=== PATIENT | female | born 1935 | race African-American/Black ===

== ENCOUNTER 2017-09-08 07:50 | Observation (INO) | payer MEDICARE, OTHER ==
[2017-09-08] VITALS (10 sets, daily range): BP systolic 126–189; BP diastolic 63–88; PULSE 65–82; RESP 15–18; TEMP 97.8–98.6; O2SAT 98–100
[~2017-09-08] VITALS: Ht 167.6 cm; Wt 80.0 kg
[~2017-09-08 07:50] MED LIST: ASPI81TA82 PO; FISH500C PO; GLUCTAB PO; NEXI20CA PO; TYLE3 PO
[2017-09-08] MEDS ORDERED: METF500T PO (07:59)
[2017-09-08] MEDS ORDERED: BENA10TA PO (08:08)
[2017-09-08] MEDS ORDERED: SODIUM CHLOR 0.9% 1000 ML INJ 1,000 ML IV ONE (08:33)
[2017-09-08] MEDS ORDERED: MECLIZINE HCL 25 MG TAB PO ONE (08:45)
[2017-09-08] MEDS ORDERED: SODIUM CHLORIDE 0.9% FLUSH 10 ML FLUSH IVF PRN (08:45)
[2017-09-08] MEDS ORDERED: ONDANSETRON HCL 4 MG/2 ML VIAL IVP ONE (08:45)
--- NOTE | 2017-09-08 08:47 | PD ---
HPI Chief Complaint: Dizziness Time Seen by Provider: 08:20 Travel History International Travel<30 days: No Contact w/Intl Traveler<30days: No Traveled to known affect area: No History of Present Illness HPI The patient is a 82-year-old after [place] female who presents emergency department for dizziness. The patient states her dizziness started yesterday. The dizziness is intermittent, can last minutes to hours, is worse with standing upright and activity, alleviated at rest. She denies any dizziness with turning her head to the left or right. She describes her dizziness as feeling off balance, denies any room spinning or for dizziness symptoms. She denies any nausea, vomiting, palpitations, chest pain, shortness of breath, or focal deficits. The patient does have a history of similar symptoms according to family member, states that she occasionally will become dizzy when she is over exerted. The patient is asymptomatic upon arrival, was noted her blood pressure was elevated. The patient is followed by her primary physician, Dr. Gordon, and her senior data modeler, Dr. Mcclure. PFSH Past Medical History Arthritis: Yes Cancer: No Cardiovascular Problems: Yes Chemotherapy: No Diabetes: Yes (PT REPORT DOES NOT TAKE MEDS) Patient Takes Glucophage: No Diminished Hearing: No Gastrointestinal Disorders: Yes GERD: Yes Genitourinary: No Musculoskeletal: Yes Neurologic: Yes Reproductive: No Respiratory: No Migraines: Yes Radiation Therapy: No Tetanus Vaccination: > 5 Years Influenza Vaccination: Yes ?: Not Menopausal: Yes : 1 Para: 1 Past Surgical History Gynecologic Surgery: Yes Hysterectomy: Yes Social History Alcohol Use: Yes (OCCL) Tobacco Use: No (QUIT 25 YRS AGO) Substance Use: No Allergies-Medications (Allergen,Severity, Reaction): Coded Allergies: No Known Allergies (Verified Adverse Reaction, Unknown, 09/08/17) Reported Meds & Prescriptions Reported Meds & Active Scripts Active Reported Benazepril (Benazepril HCl) 10 Mg Tab 10 Mg PO DAILY Review of Systems Except as stated in HPI: all other systems reviewed are Neg General / Constitutional: No: Fever Eyes: No: Blurred Vision HENT: Positive: Lightheadedness, No: Headaches, Vertigo Cardiovascular: No: Chest Pain or Discomfort, Palpitations, Tachycardia, Diaphoresis Respiratory: No: Shortness of Breath Gastrointestinal: No: Nausea, Vomiting Musculoskeletal: Positive: Weakness Neurologic: Positive: Dizziness, No: Focal Abnormalities, Headache, Change in Mentation, Paresthesia, Sensory Disturbance Physical Exam Narrative GENERAL: Awake, alert, pleasant 82-year-old female who appears her stated age and is in no acute respiratory distress. SKIN: Focused skin assessment warm/dry. HEAD: Atraumatic. Normocephalic. EYES: Pupils equal and round. 2 mm bilateral. EOMs are intact. Patient was able to see fingers at a distance of 2 feet without difficulty. ENT: No nasal bleeding or discharge. Mucous membranes pink and moist. NECK: Trachea midline. No JVD. CARDIOVASCULAR: Regular rate and rhythm. No murmur appreciated. RESPIRATORY: No accessory muscle use. Clear to auscultation. Breath sounds equal bilaterally. GASTROINTESTINAL: Abdomen soft, non-tender, nondistended. No rebound tenderness. MUSCULOSKELETAL: No obvious deformities. No clubbing. No cyanosis. No edema. NEUROLOGICAL: Awake and alert. No obvious cranial nerve deficits. Motor grossly within normal limits. Normal speech. Nonfocal. Oriented 3. Follows commands without difficulty. PSYCHIATRIC: Appropriate mood and affect; insight and judgment normal. Data Data Last Documented VS Vital Signs Date Time Temp Pulse Resp B/P (MAP) Pulse Ox O2 Delivery O2 Flow Rate FiO2 09/08/17 11:15 97.9 75 16 146/73 (97) 99 Room Air Orders Orders Electrocardiogram (09/08/17 08:33) Complete Blood Count With Diff (09/08/17 08:33) Comprehensive Metabolic Panel (09/08/17 08:33) Magnesium (Mg) (09/08/17 08:33) Ckmb (Isoenzyme) Profile (09/08/17 08:33) Troponin I (09/08/17 08:33) Urinalysis - C+S If Indicated (09/08/17 08:33) Chest, Single Ap (09/08/17 08:33) Ct Brain W/O Iv Contrast(Rout) (09/08/17 08:33) Ecg Monitoring (09/08/17 08:33) Iv Access Insert/Monitor (09/08/17 08:33) Oximetry (09/08/17 08:33) Meclizine (Antivert) (09/08/17 08:45) Ondansetron Inj (Zofran Inj) (09/08/17 08:45) Sodium Chloride 0.9% Flush (Ns Flush) (09/08/17 08:45) Sodium Chlor 0.9% 1000 Ml Inj (Ns 1000 M (09/08/17 08:33) Orthostatic Vital Signs (09/08/17 08:33) CKMB (09/08/17 08:20) CKMB% (09/08/17 08:20) Labetalol Inj (Trandate Inj) (09/08/17 09:30) Mri Brain W/O Contrast (09/08/17 ) Admit Order (Ed Use Only) (09/08/17 13:04) Labs Laboratory Tests Test 09/08/17 08:20 09/08/17 08:40 White Blood Count 4.6 TH/MM3 Red Blood Count 5.15 MIL/MM3 Hemoglobin 12.0 GM/DL Hematocrit 38.3 % Mean Corpuscular Volume 74.3 FL Mean Corpuscular Hemoglobin 23.2 PG Mean Corpuscular Hemoglobin Concent 31.3 % Red Cell Distribution Width 14.8 % Platelet Count 142 TH/MM3 Mean Platelet Volume 10.6 FL Neutrophils (%) (Auto) 27.5 % Lymphocytes (%) (Auto) 58.0 % Monocytes (%) (Auto) 10.7 % Eosinophils (%) (Auto) 3.4 % Basophils (%) (Auto) 0.4 % Neutrophils # (Auto) 1.3 TH/MM3 Lymphocytes # (Auto) 2.7 TH/MM3 Monocytes # (Auto) 0.5 TH/MM3 Eosinophils # (Auto) 0.2 TH/MM3 Basophils # (Auto) 0.0 TH/MM3 CBC Comment DIFF FINAL Differential Comment Blood Urea Nitrogen 15 MG/DL Creatinine 0.80 MG/DL Random Glucose 118 MG/DL Total Protein 7.5 GM/DL Albumin 3.5 GM/DL Calcium Level 9.2 MG/DL Magnesium Level 2.1 MG/DL Alkaline Phosphatase 65 U/L Aspartate Amino Transf (AST/SGOT) 25 U/L Alanine Aminotransferase (ALT/SGPT) 25 U/L Total Bilirubin 0.3 MG/DL Sodium Level 142 MEQ/L Potassium Level 3.3 MEQ/L Chloride Level 108 MEQ/L Carbon Dioxide Level 26.5 MEQ/L Anion Gap 8 MEQ/L Estimat Glomerular Filtration Rate 83 ML/MIN Total Creatine Kinase 522 U/L Creatine Kinase MB 5.5 NG/ML Creatine Kinase MB % 1.1 % Troponin I LESS THAN 0.02 NG/ML Urine Color YELLOW Urine Turbidity CLEAR Urine pH 5.5 Urine Specific [place] 1.013 Urine Protein NEG mg/dL Urine Glucose (UA) NEG mg/dL Urine Ketones NEG mg/dL Urine Occult Blood NEG Urine Nitrite NEG Urine Bilirubin NEG Urine Urobilinogen LESS THAN 2.0 MG/DL Urine Leukocyte Esterase LARGE Urine RBC 1 /hpf Urine WBC 5 /hpf Urine Squamous Epithelial Cells 2 /hpf Urine Bacteria RARE /hpf Urine Mucus FEW /lpf Microscopic Urinalysis Comment CULT NOT INDICATED MDM Medical Decision Making Medical Screen Exam Complete: Yes Emergency Medical Condition: Yes Medical Record Reviewed: Yes Interpretation(s) EKG reveals normal sinus rhythm with a rate of 76. Q wave noted in lead 3 and aVF. Tall R-wave in V2. Last Impressions Head CT 09/08/17832 Signed Impressions: Service Date/Time: September 08:46 - CONCLUSION: 1. No acute intracranial abnormality. Marquis Khan MD Chest X-Ray 09/08/17832 Signed Impressions: Service Date/Time: September 08:37 - CONCLUSION: 1. No acute cardiopulmonary findings identified. Marquis Khan MD Brain MRI 09/08/17 0000 Signed Impressions: Service Date/Time: September 11:39 - CONCLUSION: 1. No acute findings in the brain. 2. Mild asymmetry to the left temporal artery and subcutaneous soft tissues adjacent to the left mandible with some central T2 prolongation. This is nonspecific in appearance, but raises the possibility of temporal arteritis. Kobi Bui MD Laboratory Tests Test 09/08/17 08:20 09/08/17 08:40 White Blood Count 4.6 TH/MM3 Red Blood Count 5.15 MIL/MM3 Hemoglobin 12.0 GM/DL Hematocrit 38.3 % Mean Corpuscular Volume 74.3 FL Mean Corpuscular Hemoglobin 23.2 PG Mean Corpuscular Hemoglobin Concent 31.3 % Red Cell Distribution Width 14.8 % Platelet Count 142 TH/MM3 Mean Platelet Volume 10.6 FL Neutrophils (%) (Auto) 27.5 % Lymphocytes (%) (Auto) 58.0 % Monocytes (%) (Auto) 10.7 % Eosinophils (%) (Auto) 3.4 % Basophils (%) (Auto) 0.4 % Neutrophils # (Auto) 1.3 TH/MM3 Lymphocytes # (Auto) 2.7 TH/MM3 Monocytes # (Auto) 0.5 TH/MM3 Eosinophils # (Auto) 0.2 TH/MM3 Basophils # (Auto) 0.0 TH/MM3 CBC Comment DIFF FINAL Differential Comment Blood Urea Nitrogen 15 MG/DL Creatinine 0.80 MG/DL Random Glucose 118 MG/DL Total Protein 7.5 GM/DL Albumin 3.5 GM/DL Calcium Level 9.2 MG/DL Magnesium Level 2.1 MG/DL Alkaline Phosphatase 65 U/L Aspartate Amino Transf (AST/SGOT) 25 U/L Alanine Aminotransferase (ALT/SGPT) 25 U/L Total Bilirubin 0.3 MG/DL Sodium Level 142 MEQ/L Potassium Level 3.3 MEQ/L Chloride Level 108 MEQ/L Carbon Dioxide Level 26.5 MEQ/L Anion Gap 8 MEQ/L Estimat Glomerular Filtration Rate 83 ML/MIN Total Creatine Kinase 522 U/L Creatine Kinase MB 5.5 NG/ML Creatine Kinase MB % 1.1 % Troponin I LESS THAN 0.02 NG/ML Urine Color YELLOW Urine Turbidity CLEAR Urine pH 5.5 Urine Specific [place] 1.013 Urine Protein NEG mg/dL Urine Glucose (UA) NEG mg/dL Urine Ketones NEG mg/dL Urine Occult Blood NEG Urine Nitrite NEG Urine Bilirubin NEG Urine Urobilinogen LESS THAN 2.0 MG/DL Urine Leukocyte Esterase LARGE Urine RBC 1 /hpf Urine WBC 5 /hpf Urine Squamous Epithelial Cells 2 /hpf Urine Bacteria RARE /hpf Urine Mucus FEW /lpf Microscopic Urinalysis Comment CULT NOT INDICATED Differential Diagnosis Differential diagnosis includes dizziness, UTI, intracranial hemorrhage, hypertensive urgency, hypertensive emergency, cerebellar CVA, hyponatremia, vertigo, dehydration, orthostatic hypotension. Narrative Course IV was established, labs are drawn and sent, and the patient was placed on cardiac telemetry monitoring and continuous pulse oximetry monitoring. EKG was ordered and interpreted. CT of the brain was obtained. Chest x-ray was obtained. Orthostatic vital signs were obtained. The patient was administered meclizine, Zofran, and IV fluids. CT the brain reveals no acute cranial hemorrhage. Orthostatic vital signs were unremarkable. EKG revealed normal sinus rhythm, telemetry monitoring did not reveal any evidence of arrhythmia. Patient's blood pressure was elevated, she was administered labetalol 10 mg intravenously, systolic came to the 140s and diastolic to the 80s. The patient continued to have symptoms, therefore, MRI the brain was obtained to rule out cerebellar infarct, it was negative for infarct, nonspecific changes to the temporal area. However, the patient does not have a headache or fever. The patient was attempted to sit upright and then ambulate, however, she was unable to transition from the stretcher to the chair secondary to dizziness. Therefore , [facility] hour observation secondary to dizziness and inability to ambulate, as the patient's primary physician is Dr. Gordon. I discussed patient with Dr. Mckeon who agrees with 23 hour observation. Physician Communication Physician Communication I discussed the patient Dr. Mckeon who agrees with 23 hour observation. Diagnosis Primary Impression: Dizziness Admitting Information Admitting Physician Requests: Observation Condition: Stable Carlos Nowak MD Sep 08, 2017 08:47
--- NOTE | 2017-09-08 09:01 | RADRPT ---
EXAM DATE/TIME: 09/08/2017 08:46 [facility] COMPARISON: CT BRAIN W/O CONTRAST, November 13, 2012, 13:25. INDICATIONS : Dizziness. RADIATION DOSE: 56.35 CTDIvol (mGy) MEDICAL HISTORY : Cardiovascular disease. Diabetes mellitus type 2. SURGICAL HISTORY : Hysterectomy. ENCOUNTER: Initial ACUITY: 3 days PAIN SCALE: 0/10 LOCATION: Bilateral cranial TECHNIQUE: Multiple contiguous axial images were obtained of the head. Using automated exposure control and adj ustment of the mA and/or kV according to patient size, radiation dose was kept as low as reasonably a chievable to obtain optimal diagnostic quality images. DICOM format image data is available electro nically for review and comparison. FINDINGS: CEREBRUM: The ventricles are normal for age. No evidence of midline shift, mass lesion, hemorrhage or acute in farction. No extra-axial fluid collections are seen. POSTERIOR FOSSA: The cerebellum and brainstem are intact. The 4th ventricle is midline. The cerebellopontine angle i s unremarkable. EXTRACRANIAL: The visualized portion of the orbits is intact. SKULL: The calvaria is intact. No evidence of skull fracture. CONCLUSION: 1. No acute intracranial abnormality. Marquis Khan MD on September 08, 2017 at 8:58 Board Certified Radiologist. This report was verified electronically.
--- NOTE | 2017-09-08 09:08 | RADRPT ---
EXAM DATE/TIME: 09/08/2017 08:37 [facility] COMPARISON: CHEST SINGLE AP, June 17, 2012, 16:14. INDICATIONS : Palpitations, vertigo and weakness today MEDICAL HISTORY : None. SURGICAL HISTORY : None. ENCOUNTER: Initial ACUITY: 1 day PAIN SCORE: Non-responsive. LOCATION: Bilateral chest FINDINGS: The heart is mildly enlarged. The lungs demonstrate chronic interstitial changes but are otherwise cl ear. The osseous structures are grossly intact. No pneumothorax is seen. The exam is stable compared to previous dated 06/17/12. CONCLUSION: 1. No acute cardiopulmonary findings identified. Marquis Khan MD on September 08, 2017 at 9:05 Board Certified Radiologist. This report was verified electronically.
[2017-09-08 09:15] LABS: ALBUMIN 3.5 GM/DL (3.4-5.0); ALT (GPT) 25 U/L (10-53); AST (GOT) 25 U/L (15-37); BICARBONATE 26.5 MEQ/L (21.0-32.0); BLOOD UREA NITROGEN 15 MG/DL (7-18); CALCIUM 9.2 MG/DL (8.5-10.1); CHLORIDE 108 MEQ/L (98-107); GLOMERULAR FILTRATION RATE 83 ML/MIN (>89); GLUCOSE,RANDOM 118 MG/DL (74-106); MAGNESIUM 2.1 MG/DL (1.5-2.5); SODIUM (NA) 142 MEQ/L (136-145)
[2017-09-08 09:18] LABS: AUTOMATED NEUTROPHIL # 1.3 TH/MM3 (1.8-7.7); BASOPHIL % 0.4 % (0.0-2.0); EOSINOPHIL # 0.2 TH/MM3 (0-0.4); EOSINOPHIL % 3.4 % (0.0-4.0); HEMATOCRIT 38.3 % (35.0-46.0); LYMPHOCYTE # 2.7 TH/MM3 (1.0-4.8); MEAN CELL VOLUME 74.3 FL (80.0-100.0); MEAN CORPUSCULAR HEMOGLOBIN 23.2 PG (27.0-34.0); MEAN CORPUSCULAR HGB CONC 31.3 % (32.0-36.0); MEAN PLATELET VOLUME 10.6 FL (7.0-11.0); MONO % 10.7 % (0.0-8.0); MONOCYTE # 0.5 TH/MM3 (0-0.9); NEUT % 27.5 % (16.0-70.0); PLATELET COUNT 142 TH/MM3 (150-450); RED BLOOD COUNT 5.15 MIL/MM3 (4.00-5.30); RED CELL DISTRIBUTION WIDTH 14.8 % (11.6-17.2); WHITE BLOOD COUNT 4.6 TH/MM3 (4.0-11.0)
[2017-09-08 09:19] LABS: ALKALINE PHOSPHATASE 65 U/L (45-117); TOTAL BILIRUBIN ADULT 0.3 MG/DL (0.2-1.0); TOTAL PROTEIN 7.5 GM/DL (6.4-8.2); TROPONIN I LESS THAN 0.02 NG/ML (0.02-0.05)
[2017-09-08] MEDS ORDERED: LABETALOL HCL 100 MG/20 ML VIAL IV PUSH ONE (09:30)
[2017-09-08 09:40] LABS: BACTERIA, URINE RARE /hpf; BILIRUBIN, URINE NEG (NEG); BLOOD, URINE NEG (NEG); GLUCOSE,URINE NEG (NEG); KETONE, URINE NEG (NEG); MUCUS URINE FEW /lpf (OCC); NITRITE,URINE NEG (NEG); PH, URINE 5.5 (5.0-8.5); SQUAMOUS EPITHELIAL CELL URINE 2 /hpf (0-5); URINE COLOR YELLOW (YELLW/STRAW); URINE LEUKOCYTE ESTERASE LARGE (NEG)
--- NOTE | 2017-09-08 12:30 | RADRPT ---
EXAM DATE/TIME: 09/08/2017 11:39 [facility] COMPARISON: CT BRAIN W/O CONTRAST, September 08, 2017, 8:46. INDICATIONS : CVA. Dizziness for three days. MEDICAL HISTORY : Diabetes mellitus type 2. Hypertension. SURGICAL HISTORY : Hysterectomy. Right knee surgery. ENCOUNTER: Initial ACUITY: 3 day PAIN SCORE: 0/10 LOCATION: Head. TECHNIQUE: Multiplanar, multisequence MRI of the brain was performed without contrast. FINDINGS: CEREBRUM: The ventricles are normal for age. No evidence of midline shift, mass lesion, hemorrhage or acute in farction. No extraaxial fluid collections are seen. The pituitary gland and suprasellar cistern are normal in configuration. WHITE MATTER: No significant signal abnormalities are seen in the white matter. POSTERIOR FOSSA: The cerebellum and brainstem are intact. The 4th ventricle is midline. The cerebellopontine angle is unremarkable. The cerebellar tonsils are normal in position. Tortuous basilar artery. DIFFUSION IMAGING: No focal areas of restricted diffusion are seen. No evidence of acute infarction. EXTRACRANIAL: The visualized portions of the orbits and paranasal sinuses are unremarkable. CONCLUSION: 1. No acute findings in the brain. 2. Mild asymmetry to the left temporal artery and subcutaneous soft tissues adjacent to the left steven ible with some central T2 prolongation. This is nonspecific in appearance, but raises the possibility of temporal arteritis. Kobi Bui MD on September 08, 2017 at 12:24 Board Certified Radiologist. This report was verified electronically.
[2017-09-08] MEDS: SODIUM CHLOR 0.9% 1000 ML INJ 1,000 ML IV SCH (13:04)
[2017-09-08] MEDS ORDERED: ONDANSETRON HCL 4 MG/2 ML VIAL IVP PRN (13:15)
[2017-09-08] MEDS ORDERED: SODIUM CHLORIDE 0.9% FLUSH 10 ML FLUSH IV FLUSH PRN (13:15)
[2017-09-08] MEDS ORDERED: MAGNESIUM HYDROXIDE SUSP 30 ML CUP PO PRN (13:15)
[2017-09-08] MEDS ORDERED: NALOXONE HCL 0.4 MG/ML AMP IV PUSH PRN (13:15)
[2017-09-08] MEDS ORDERED: BISACODYL 10 MG SUPP RECTAL PRN (13:15)
[2017-09-08] MEDS ORDERED: SENNOSIDES 8.6 MG TAB PO PRN (13:15)
[2017-09-08] MEDS ORDERED: LACTULOSE SYRUP 20 GM/30 ML CUP PO PRN (13:15)
[2017-09-08] MEDS ORDERED: DIAZEPAM 2 MG TAB PO PRN (13:30)
[2017-09-08] MEDS ORDERED: MECLIZINE HCL 25 MG TAB PO PRN (13:30)
[2017-09-08] MEDS ORDERED: ENALAPRILAT 2.5 MG/2 ML VIAL IV PUSH PRN (13:30)
[2017-09-08] MEDS ORDERED: DIAZEPAM 5 MG TAB PO ONE (13:30)
--- NOTE | 2017-09-08 13:35 | HHI.HP ---
[facility] Service [facility] Primary Care Physician Mary Gordon M.D. Admission Diagnosis dizziness, inability to ambulate Diagnoses: Chief Complaint: dizziness Travel History International Travel<30 Days: No Contact w/Intl Traveler <30 Da: No Traveled to Known Affected Are: No History of Present Illness This is an 82-year-old female past medical history hypertension complaining of dizziness. Patient stated that dizziness started yesterday. Dizziness described as room spinning. Only occurs when she gets up. She stated that turning her head makes the dizziness worse. She denies any headache, visual changes, nausea or vomiting. Patient stated that he she has not been drinking enough fluid. Per patient's son he feels like patient is working a lot is not taking care of herself. Patient was given meclizine in the ED. She feels like meclizine has improved her dizziness, but she continues to have dizziness in which she is unable to ambulate so I was asked by the ED physician to admit to observation. In the ED patient was noted to be hypertensive. Patient stated that her blood pressures usually control. She said yesterday her systolic blood pressure was 110. All other review of system reviewed and negative. Past Family Social History Past Medical History Hypertension Prediabetes Past Surgical History History of hysterectomy Right knee arthroscopy Reported Medications Benazepril (Benazepril HCl) 10 Mg Tab 10 Mg PO DAILY Allergies: Coded Allergies: No Known Allergies (Verified Adverse Reaction, Unknown, 09/08/17) Active Ordered Medications Current Medications Meclizine HCl (Antivert) 25 mg ONCE ONCE PO Last administered on 09/08/17at 08: 41; Start 09/08/17 at 08:45; Stop 09/08/17 at 08:46; Status DC Ondansetron HCl (Zofran Inj) 4 mg ONCE ONCE IVP Last administered on 09/08/17at 08:41; Start 09/08/17 at 08:45; Stop 09/08/17 at 08:46; Status DC Sodium Chloride (NS Flush) 2 ml UNSCH PRN IVF FLUSH AFTER USING IV ACCESS Last administered on 09/08/17at 08:41; Start 09/08/17 at 08:45 Sodium Chloride 1,000 ml @ 100 mls/hr Q10H ONCE IV Last administered on at 08:40; Start 09/08/17 at 08:33; Stop 09/08/17 at 18:32 Labetalol HCl (Trandate Inj) 10 mg ONCE ONCE IV PUSH Last administered on at 09:44; Start 09/08/17 at 09:30; Stop 09/08/17 at 09:31; Status DC Sodium Chloride 1,000 ml @ 100 mls/hr Q10H IV ; Start 09/08/17 at 13:04; Status UNV Sodium Chloride (NS Flush) 2 ml UNSCH PRN IV FLUSH FLUSH AFTER USING IV ACCESS ; Start 09/08/17 at 13:15; Status UNV Sodium Chloride (NS Flush) 2 ml BID IV FLUSH ; Start 09/08/17 at 21:00; Status UNV Acetaminophen (Tylenol) 650 mg Q4H PRN PO TEMP > 100.4; Start 09/08/17 at 13:15 ; Status UNV Ondansetron HCl (Zofran Inj) 4 mg Q6H PRN IVP NAUSEA OR VOMITING; Start at 13:15; Status UNV Naloxone HCl (Narcan Inj) 0.4 mg UNSCH PRN IV PUSH SEE LABEL COMMENTS; Start at 13:15; Status UNV Senna/Docusate Sodium (Osiris-Colace) 1 tab BID PO ; Start 09/08/17 at 21:00; Status UNV Magnesium Hydroxide (Milk Of Magnesia Liq) 30 ml Q12H PRN PO Mild constipation ; Start 09/08/17 at 13:15; Status UNV Sennosides (Senokot) 17.2 mg Q12H PRN PO Moderate constipation; Start 09/08/17 at 13:15; Status UNV Bisacodyl (Dulcolax Supp) 10 mg DAILY PRN RECTAL SEVERE CONSITIPATION; Start at 13:15; Status UNV Lactulose (Lactulose Liq) 30 ml DAILY PRN PO SEVERE CONSITIPATION; Start at 13:15; Status UNV Lisinopril (Prinivil) 10 mg DAILY PO ; Start 09/09/17 at 09:00; Status UNV Family History Father from an [place] at the age of 47. Social History Denies any alcohol, tobacco, illicit drug use. Patient is retired. Physical Exam Vital Signs Vital Signs Date Time Temp Pulse Resp B/P (MAP) Pulse Ox O2 Delivery O2 Flow Rate FiO2 09/08/17 11:15 97.9 75 16 146/73 (97) 99 Room Air 09/08/17 10:06 97.8 77 16 182/79 (113) 100 Room Air 09/08/17 09:40 80 15 182/80 (114) 99 Room Air 09/08/17 08:35 16 99 Room Air 09/08/17 08:35 74 16 182/84 (116) 78 16 183/81 (115) 09/08/17 07:55 80 16 99 Room Air 09/08/17 07:54 98.0 78 16 189/88 (121) 99 Physical Exam GENERAL: This is a well-nourished, well-developed patient, in no apparent distress. SKIN: No rashes, ecchymoses or lesions. Cool and dry. HEAD: Atraumatic. Normocephalic. No temporal or scalp tenderness. EYES: Pupils equal round and reactive. Extraocular motions intact. No scleral icterus. No injection or drainage. ENT: Nose without bleeding, purulent drainage or septal hematoma. Throat without erythema, tonsillar hypertrophy or exudate. Uvula midline. Airway patent. NECK: Trachea midline. No JVD or lymphadenopathy. Supple, nontender, no meningeal signs. CARDIOVASCULAR: Regular rate and rhythm without murmurs, gallops, or rubs. RESPIRATORY: Clear to auscultation. Breath sounds equal bilaterally. No wheezes , rales, or rhonchi. GASTROINTESTINAL: Abdomen soft, non-tender, nondistended. No hepato-splenomegaly , or palpable masses. No guarding. MUSCULOSKELETAL: Extremities without clubbing, cyanosis, or edema. No joint tenderness, effusion, or edema noted. No calf tenderness. Negative Homans sign bilaterally. NEUROLOGICAL: Awake and alert. Cranial nerves II through XII intact. Motor and sensory grossly within normal limits. Five out of 5 muscle strength in all muscle groups. Normal speech. Laboratory Laboratory Tests Test 09/08/17 08:20 2/8/18 08:40 White Blood Count 4.6 Red Blood Count 5.15 Hemoglobin 12.0 Hematocrit 38.3 Mean Corpuscular Volume 74.3 Mean Corpuscular Hemoglobin 23.2 Mean Corpuscular Hemoglobin Concent 31.3 Red Cell Distribution Width 14.8 Platelet Count 142 Mean Platelet Volume 10.6 Neutrophils (%) (Auto) 27.5 Lymphocytes (%) (Auto) 58.0 Monocytes (%) (Auto) 10.7 Eosinophils (%) (Auto) 3.4 Basophils (%) (Auto) 0.4 Neutrophils # (Auto) 1.3 Lymphocytes # (Auto) 2.7 Monocytes # (Auto) 0.5 Eosinophils # (Auto) 0.2 Basophils # (Auto) 0.0 CBC Comment DIFF FINAL Differential Comment Blood Urea Nitrogen 15 Creatinine 0.80 Random Glucose 118 Total Protein 7.5 Albumin 3.5 Calcium Level 9.2 Magnesium Level 2.1 Alkaline Phosphatase 65 Aspartate Amino Transf (AST/SGOT) 25 Alanine Aminotransferase (ALT/SGPT) 25 Total Bilirubin 0.3 Sodium Level 142 Potassium Level 3.3 Chloride Level 108 Carbon Dioxide Level 26.5 Anion Gap 8 Estimat Glomerular Filtration Rate 83 Total Creatine Kinase 522 Creatine Kinase MB 5.5 Creatine Kinase MB % 1.1 Troponin I LESS THAN 0.02 Urine Color YELLOW Urine Turbidity CLEAR Urine pH 5.5 Urine Specific [place] 1.013 Urine Protein NEG Urine Glucose (UA) NEG Urine Ketones NEG Urine Occult Blood NEG Urine Nitrite NEG Urine Bilirubin NEG Urine Urobilinogen LESS THAN 2.0 Urine Leukocyte Esterase LARGE Urine RBC 1 Urine WBC 5 Urine Squamous Epithelial Cells 2 Urine Bacteria RARE Urine Mucus FEW Microscopic Urinalysis Comment CULT NOT INDICATED Result Diagram: 09/08/1781909/08/17819 Imaging Last Impressions Head CT 09/08/17832 Signed Impressions: Service Date/Time: September 08:46 - CONCLUSION: 1. No acute intracranial abnormality. Marquis Khan MD Chest X-Ray 09/08/17832 Signed Impressions: Service Date/Time: September 08:37 - CONCLUSION: 1. No acute cardiopulmonary findings identified. Marquis Khan MD Brain MRI 09/08/17 0000 Signed Impressions: Service Date/Time: September 11:39 - CONCLUSION: 1. No acute findings in the brain. 2. Mild asymmetry to the left temporal artery and subcutaneous soft tissues adjacent to the left mandible with some central T2 prolongation. This is nonspecific in appearance, but raises the possibility of temporal arteritis. MD Cosme Jiang VTE Risk Assessment Caprini VTE Risk Assessment: No/Low Risk (score <= 1) Caprini Risk Assessment Model Point Value = 1 Point Value = 2 Point Value = 3 Point Value = 5 Age 41-60 Minor surgery BMI > 25 kg/m2 Swollen legs Varicose veins or History of unexplained or recurrent spontaneous Oral contraceptives or hormone replacement Sepsis (< 1 month) Serious lung disease, including pneumonia (< 1 month) Abnormal pulmonary function Acute myocardial infarction Congestive heart failure (< 1 month) History of inflammatory bowel disease Medical patient at bed rest Age 61-74 Arthroscopic surgery Major open surgery (> 45 min) Laparoscopic surgery (> 45 min) Malignancy Confined to bed (> 72 hours) Immobilizing plaster cast Central venous access Age >= 75 History of VTE Family history of VTE Factor V Leiden Prothrombin [id number] Lupus anticoagulant Anticardiolipin antibodies Elevated serum homocysteine Heparin-induced thrombocytopenia Other congenital or acquired thrombophilia Stroke (< 1 month) Elective arthroplasty Hip, pelvis, or leg fracture Acute spinal cord injury (< 1 month) Prophylaxis Regimen Total Risk Factor Score Risk Level Prophylaxis Regimen 0-1 Low Early ambulation 2 Moderate Order ONE of the following: *Sequential Compression Device (SCD) *Heparin 5000 units SQ BID 3-4 Higher Order ONE of the following medications: *Heparin 5000 units SQ TID *Enoxaparin/Lovenox 40 mg SQ daily (WT < 150 kg, CrCl > 30 mL/min) *Enoxaparin/Lovenox 30 mg SQ daily (WT < 150 kg, CrCl > 10-29 mL/min) *Enoxaparin/Lovenox 30 mg SQ BID (WT < 150 kg, CrCl > 30 mL/min) AND/OR *Sequential Compression Device (SCD) 5 or more Highest Order ONE of the following medications: *Heparin 5000 units SQ TID (Preferred with Epidurals) *Enoxaparin/Lovenox 40 mg SQ daily (WT < 150 kg, CrCl > 30 mL/min) *Enoxaparin/Lovenox 30 mg SQ daily (WT < 150 kg, CrCl > 10-29 mL/min) *Enoxaparin/Lovenox 30 mg SQ BID (WT < 150 kg, CrCl > 30 mL/min) AND *Sequential Compression Device (SCD) Assessment and Plan Assessment and Plan This is an 82-year-old female past medical history of hypertension who presented with dizziness Dizziness -From history sounds like BPPV. CT scan of the head negative. MRI of the head shows mild asymmetry to the left temporal artery and subcutaneous soft tissue which is nonspecific. Very unlikely due to temporal arteritis since she is asymptomatic, but will get a sed rate. Labs reviewed relatively within normal limits. -Symptoms improve meclizine but she continued to be symptomatic where she cannot ambulate. We will also try Valium and continue with meclizine as needed. -Consult physical therapist. Hypertension -Per patient it is controlled at home. During hospitalization blood pressure is uncontrolled. Continue with home medication. We will add enalapril as needed for systolic blood pressure greater than 180 or diastolic blood pressure greater than 100. Prediabetes -Continue a diabetic diet. Follow-up as outpatient. Hypokalemia -Replenish as needed. DVT prophylaxis -SCDs. Discussed Condition With patient and multiple family members. Shaina Mckeon MD Sep 08, 2017 13:35
[2017-09-08] MEDS ORDERED: POTASSIUM CHLORIDE 25 MEQ EFFERVESCENT TAB PO ONE (13:45)
--- NOTE | 2017-09-08 20:29 | EKG ---
Date Performed: 09/08/2017 Time Performed: 08:16:59 PTAGE: 82 years EKG: Sinus rhythm POSSIBLE LEFT VENTRICULAR HYPERTROPHY INFERIOR MYOCARDIAL INFARCTION ABNORMAL ECG PREVIOUS TRACING : 06/19/2012 05.55 Since the prior tracing, there has been no significant [place] DOCTOR: Raza Steiner Interpretating Date/Time 09/08/2017 20:21:42
[2017-09-08] MEDS: SODIUM CHLORIDE 0.9% FLUSH 10 ML FLUSH IV FLUSH SCH (21:28)
[2017-09-08] MEDS: DOCUSATE SODIUM 50 MG/SENNA 8.6 MG TAB PO SCH (21:28)
[2017-09-09 00:33] VITALS: PULSE 81
[2017-09-09] MEDS: ACETAMINOPHEN 325 MG TAB PO PRN ×2 (01:07→09:40)
[2017-09-09] MEDS: SODIUM CHLOR 0.9% 1000 ML INJ 1,000 ML IV SCH (01:08)
[2017-09-09 03:29] VITALS: BP 116/58; PULSE 63; RESP 15; TEMP 98.7; O2SAT 97
[2017-09-09 06:55] VITALS: BP 166/73; PULSE 70; RESP 18; TEMP 97.9; O2SAT 100
[2017-09-09 07:21] LABS: BICARBONATE 27.9 MEQ/L (21.0-32.0); CALCIUM 8.1 MG/DL (8.5-10.1); CREATININE 0.71 MG/DL (0.50-1.00)
[2017-09-09 07:30] VITALS: PULSE 61
[2017-09-09] MEDS: DOCUSATE SODIUM 50 MG/SENNA 8.6 MG TAB PO SCH (08:01)
[2017-09-09] MEDS: SODIUM CHLORIDE 0.9% FLUSH 10 ML FLUSH IV FLUSH SCH (08:02)
[2017-09-09] MEDS ORDERED: LISINOPRIL 10 MG TAB PO SCH (09:00)
--- NOTE | 2017-09-09 09:39 | HHI.PR ---
Subjective Remarks This is an 82-year-old female past medical history hypertension complaining of dizziness. Patient stated that dizziness started yesterday. Dizziness described as room spinning. Only occurs when she gets up. She stated that turning her head makes the dizziness worse. She denies any headache, visual changes, nausea or vomiting. Patient stated that he she has not been drinking enough fluid. Per patient's son he feels like patient is working a lot is not taking care of herself. Patient was given meclizine in the ED. She feels like meclizine has improved her dizziness, but she continues to have dizziness in which she is unable to ambulate so I was asked by the ED physician to admit to observation. In the ED patient was noted to be hypertensive. Patient stated that her blood pressures usually control. She said yesterday her systolic blood pressure was 110. All other review of system reviewed and negative. 2 patient is feeling much better states she is not as dizzy as yesterday and wants to go home Can be discharged to home today have discussed with the patient and her RN Objective Vitals Vital Signs Date Time Temp Pulse Resp B/P (MAP) Pulse Ox O2 Delivery O2 Flow Rate FiO2 09/09/17 06:55 97.9 70 18 166/73 (104) 100 09/09/17 03:29 98.7 63 15 116/58 (77) 97 09/09/17 00:33 81 09/08/17 23:21 98.5 68 17 126/73 (90) 98 09/08/17 20:26 98.6 75 16 131/63 (85) 98 09/08/17 17:18 98.6 82 18 159/82 (107) 98 09/08/17 13:30 97.8 78 16 133/81 (98) 99 09/08/17 11:15 97.9 75 16 146/73 (97) 99 Room Air 09/08/17 10:06 97.8 77 16 182/79 (113) 100 Room Air 09/08/17 09:40 80 15 182/80 (114) 99 Room Air I/O 09/08/17 09/08/17 09/08/17 09/09/17 09/09/17 09/09/17 07:00 15:00 23:00 07:00 15:00 23:00 Output Total 800 ml Balance -800 ml Output Urine Total 800 ml # Voids 1 2 # Bowel Movements 0 Result Diagram: 09/08/17 0820 09/09/17 0524 Other Results Laboratory Tests Test 09/08/17 08:20 09/08/17 08:40 09/09/17 05:24 White Blood Count 4.6 TH/MM3 Red Blood Count 5.15 MIL/MM3 Hemoglobin 12.0 GM/DL Hematocrit 38.3 % Mean Corpuscular Volume 74.3 FL Mean Corpuscular Hemoglobin 23.2 PG Mean Corpuscular Hemoglobin Concent 31.3 % Red Cell Distribution Width 14.8 % Platelet Count 142 TH/MM3 Mean Platelet Volume 10.6 FL Neutrophils (%) (Auto) 27.5 % Lymphocytes (%) (Auto) 58.0 % Monocytes (%) (Auto) 10.7 % Eosinophils (%) (Auto) 3.4 % Basophils (%) (Auto) 0.4 % Neutrophils # (Auto) 1.3 TH/MM3 Lymphocytes # (Auto) 2.7 TH/MM3 Monocytes # (Auto) 0.5 TH/MM3 Eosinophils # (Auto) 0.2 TH/MM3 Basophils # (Auto) 0.0 TH/MM3 CBC Comment DIFF FINAL Differential Comment Erythrocyte Sedimentation Rate 10 mm/hr Blood Urea Nitrogen 15 MG/DL 13 MG/DL Creatinine 0.80 MG/DL 0.71 MG/DL Random Glucose 118 MG/DL 85 MG/DL Total Protein 7.5 GM/DL Albumin 3.5 GM/DL Calcium Level 9.2 MG/DL 8.1 MG/DL Magnesium Level 2.1 MG/DL Alkaline Phosphatase 65 U/L Aspartate Amino Transf (AST/SGOT) 25 U/L Alanine Aminotransferase (ALT/SGPT) 25 U/L Total Bilirubin 0.3 MG/DL Sodium Level 142 MEQ/L 145 MEQ/L Potassium Level 3.3 MEQ/L 4.2 MEQ/L Chloride Level 108 MEQ/L 112 MEQ/L Carbon Dioxide Level 26.5 MEQ/L 27.9 MEQ/L Anion Gap 8 MEQ/L 5 MEQ/L Estimat Glomerular Filtration Rate 83 ML/MIN 95 ML/MIN Total Creatine Kinase 522 U/L Creatine Kinase MB 5.5 NG/ML Creatine Kinase MB % 1.1 % Troponin I LESS THAN 0.02 NG/ML Urine Color YELLOW Urine Turbidity CLEAR Urine pH 5.5 Urine Specific [place] 1.013 Urine Protein NEG mg/dL Urine Glucose (UA) NEG mg/dL Urine Ketones NEG mg/dL Urine Occult Blood NEG Urine Nitrite NEG Urine Bilirubin NEG Urine Urobilinogen LESS THAN 2.0 MG/DL Urine Leukocyte Esterase LARGE Urine RBC 1 /hpf Urine WBC 5 /hpf Urine Squamous Epithelial Cells 2 /hpf Urine Bacteria RARE /hpf Urine Mucus FEW /lpf Microscopic Urinalysis Comment CULT NOT INDICATED Imaging Last Impressions Head CT 09/08/17832 Signed Impressions: Service Date/Time: September 08:46 - CONCLUSION: 1. No acute intracranial abnormality. Marquis Khan MD Chest X-Ray 09/08/17832 Signed Impressions: Service Date/Time: September 08:37 - CONCLUSION: 1. No acute cardiopulmonary findings identified. Marquis Khan MD Brain MRI 09/08/17 0000 Signed Impressions: Service Date/Time: September 11:39 - CONCLUSION: 1. No acute findings in the brain. 2. Mild asymmetry to the left temporal artery and subcutaneous soft tissues adjacent to the left mandible with some central T2 prolongation. This is nonspecific in appearance, but raises the possibility of temporal arteritis. Kobi Bui MD Objective Remarks GENERAL: Awake alert oriented talkative and cooperative SKIN: Warm and dry. HEAD: Atraumatic. Normocephalic. EYES: Pupils equal and round. No scleral icterus. No injection or drainage. No obvious nystagmus at this time extraocular muscles intact ENT: No nasal bleeding or discharge. Mucous membranes pink and moist. Tongue is midline NECK: Trachea midline. No JVD. Supple CARDIOVASCULAR: Regular rate and rhythm. S1 and S2 no S3 or S4 RESPIRATORY: No accessory muscle use. Clear to auscultation. Breath sounds equal bilaterally. GASTROINTESTINAL: Abdomen soft, non-tender, nondistended. Hepatic and splenic margins not palpable. MUSCULOSKELETAL: Extremities without clubbing, cyanosis, or edema. No obvious deformities. NEUROLOGICAL: Awake and alert. No obvious cranial nerve deficits. Motor grossly within normal limits. 4 out of 5 muscle strength in the arms and legs. Normal speech. PSYCHIATRIC: Appropriate mood and affect; insight and judgment normal. Procedures NONE Medications and IVs Current Medications Meclizine HCl (Antivert) 25 mg ONCE ONCE PO Last administered on 09/08/17 08: 41; Start 09/08/17 at 08:45; Stop 09/08/17 at 08:46; Status DC Ondansetron HCl (Zofran Inj) 4 mg ONCE ONCE IVP Last administered on 09/08/17 08:41; Start 09/08/17 at 08:45; Stop 09/08/17 at 08:46; Status DC Sodium Chloride (NS Flush) 2 ml UNSCH PRN IVF FLUSH AFTER USING IV ACCESS Last administered on 09/08/17 08:41; Start 09/08/17 at 08:45; Stop 09/08/17 at 14:28; Status DC Sodium Chloride 1,000 ml @ 100 mls/hr Q10H ONCE IV Last administered on 08:40; Start 09/08/17 at 08:33; Stop 09/08/17 at 14:27; Status DC Labetalol HCl (Trandate Inj) 10 mg ONCE ONCE IV PUSH Last administered on at 09:44; Start 09/08/17 at 09:30; Stop 09/08/17 at 09:31; Status DC Sodium Chloride 1,000 ml @ 100 mls/hr Q10H IV Last administered on 09/09/17 01 :08; Start 09/08/17 at 13:04 Sodium Chloride (NS Flush) 2 ml UNSCH PRN IV FLUSH FLUSH AFTER USING IV ACCESS ; Start 09/08/17 at 13:15 Sodium Chloride (NS Flush) 2 ml BID IV FLUSH Last administered on 09/09/17 08: 02; Start 09/08/17 at 21:00 Acetaminophen (Tylenol) 650 mg Q4H PRN PO TEMP > 100.4 Last administered on 09/09 01:07; Start 09/08/17 at 13:15 Ondansetron HCl (Zofran Inj) 4 mg Q6H PRN IVP NAUSEA OR VOMITING; Start at 13:15 Naloxone HCl (Narcan Inj) 0.4 mg UNSCH PRN IV PUSH SEE LABEL COMMENTS; Start at 13:15 Senna/Docusate Sodium (Osiris-Colace) 1 tab BID PO Last administered on 09/08/17at 21:28; Start 09/08/17 at 21:00 Magnesium Hydroxide (Milk Of Magnesia Liq) 30 ml Q12H PRN PO Mild constipation ; Start 09/08/17 at 13:15 Sennosides (Senokot) 17.2 mg Q12H PRN PO Moderate constipation; Start 09/08/17 at 13:15 Bisacodyl (Dulcolax Supp) 10 mg DAILY PRN RECTAL SEVERE CONSITIPATION; Start at 13:15 Lactulose (Lactulose Liq) 30 ml DAILY PRN PO SEVERE CONSITIPATION; Start at 13:15 Lisinopril (Prinivil) 10 mg DAILY PO Last administered on 09/09/17at 08:02; Start 09/09/17 at 09:00 Diazepam (Valium) 5 mg ONCE ONCE PO Last administered on 09/08/17at 15:20; Start 09/08/17 at 13:30; Stop 09/08/17 at 14:29; Status DC Diazepam (Valium) 2 mg Q12H PRN PO dizziness; Start 09/08/17 at 13:30 Meclizine HCl (Antivert) 25 mg Q8H PRN PO dizziness; Start 09/08/17 at 13:30 Enalaprilat (Vasotec Inj) 2.5 mg Q6H PRN IV PUSH SBP>180 or DBP>100; Start 09/08 at 13:30 Potassium Bicarb/ Potassium Chloride (K-Lyte Cl Eff) 50 meq ONCE ONCE PO Last administered on 09/08/17at 15:21; Start 09/08/17 at 13:45; Stop 09/08/17 at 14: 30; Status DC A/P Assessment and Plan This is an 82-year-old female past medical history of hypertension who presented with dizziness Dizziness -From history sounds like BPPV. CT scan of the head negative. MRI of the head shows mild asymmetry to the left temporal artery and subcutaneous soft tissue which is nonspecific. Very unlikely due to temporal arteritis since she is asymptomatic, but will get a sed rate. Labs reviewed relatively within normal limits. -Symptoms improve meclizine but she continued to be symptomatic where she cannot ambulate. We will also try Valium and continue with meclizine as needed. -Consult physical therapist. Patient states she feels better and wants to go home Hypertension -Per patient it is controlled at home. During hospitalization blood pressure is uncontrolled. Continue with home medication. We will add enalapril as needed for systolic blood pressure greater than 180 or diastolic blood pressure greater than 100. Prediabetes -Continue a diabetic diet. Follow-up as outpatient. Hypokalemia -Replenish as needed. DVT prophylaxis -SCDs. Labs are stable and we'll discharge the patient Her nystagmus has resolved and has less vertigo Discharge Planning DC to home today Surinder Dalal DO Sep 09, 2017 09:39
[2017-09-09] MEDS ORDERED: MECL1TAB42 PO (09:53)
[2017-09-09] MEDS ORDERED: DIAZ2 PO (09:53)
--- NOTE | 2017-09-09 09:55 | HHI.FF ---
Face to Face Verification Diagnosis: (1) Hypertension (2) Dizziness Physical Therapy Order: Evaluate and Treat, Improve ambulation, Strength and gait training Instructions: VERTIGO TREATMENT Home Health Nursing Order: Signs/symptoms of disease process Nursing assessment with vital signs Home Health Aide Order: To Assist In: Bathing and personal care, fabricating machine operator and meal prep I have seen patient Domenico Gonzalez on 09/09/17. My clinical findings support the need for the requested home health care services because: Ltd mobility - disease progression I certify that my clinical findings support that this patient is homebound because: Unsteady gait/balance Surinder Dalal DO Sep 09, 2017 09:55
--- NOTE | 2017-09-09 09:57 | HHI.DS ---
Discharge Summary Admission Date Sep 08, 2017 at 13:05 Discharge Date: Sep 09, 2017 Admitting Diagnosis dizziness, inability to ambulate (1) Hypertension ICD Code: I10 - Essential (primary) hypertension Diagnosis: Secondary (2) Dizziness ICD Code: R42 - Dizziness and giddiness Diagnosis: Principal Status: Acute Procedures NONE Brief History - From Admission This is an 82-year-old female past medical history hypertension complaining of dizziness. Patient stated that dizziness started yesterday. Dizziness described as room spinning. Only occurs when she gets up. She stated that turning her head makes the dizziness worse. She denies any headache, visual changes, nausea or vomiting. Patient stated that he she has not been drinking enough fluid. Per patient's son he feels like patient is working a lot is not taking care of herself. Patient was given meclizine in the ED. She feels like meclizine has improved her dizziness, but she continues to have dizziness in which she is unable to ambulate so I was asked by the ED physician to admit to observation. In the ED patient was noted to be hypertensive. Patient stated that her blood pressures usually control. She said yesterday her systolic blood pressure was 110. All other review of system reviewed and negative. CBC/BMP: 09/08/17 0820 09/09/17 0524 Significant Findings Laboratory Tests Test 09/08/17 08:20 09/08/17 08:40 09/09/17 05:24 Mean Corpuscular Volume 74.3 FL (80.0-100.0) Mean Corpuscular Hemoglobin 23.2 PG (27.0-34.0) Mean Corpuscular Hemoglobin Concent 31.3 % (32.0-36.0) Platelet Count 142 TH/MM3 (150-450) Lymphocytes (%) (Auto) 58.0 % (9.0-44.0) Monocytes (%) (Auto) 10.7 % (0.0-8.0) Neutrophils # (Auto) 1.3 TH/MM3 (1.8-7.7) Random Glucose 118 MG/DL (74-106) Potassium Level 3.3 MEQ/L (3.5-5.1) Chloride Level 108 MEQ/L (98-107) 112 MEQ/L (98-107) Estimat Glomerular Filtration Rate 83 ML/MIN (>89) Total Creatine Kinase 522 U/L (26-192) Creatine Kinase MB 5.5 NG/ML (0.5-3.6) Troponin I LESS THAN 0.02 NG/ML Urine Leukocyte Esterase LARGE (NEG) Urine Bacteria RARE /hpf (NONE) Urine Mucus FEW /lpf (OCC) Calcium Level 8.1 MG/DL (8.5-10.1) Imaging Last Impressions Head CT 09/08/17832 Signed Impressions: Service Date/Time: September 08:46 - CONCLUSION: 1. No acute intracranial abnormality. Marquis Khan MD Chest X-Ray 09/08/17832 Signed Impressions: Service Date/Time: September 08:37 - CONCLUSION: 1. No acute cardiopulmonary findings identified. Marquis Khan MD Brain MRI 09/08/17 Signed Impressions: Service Date/Time: September 11:39 - CONCLUSION: 1. No acute findings in the brain. 2. Mild asymmetry to the left temporal artery and subcutaneous soft tissues adjacent to the left mandible with some central T2 prolongation. This is nonspecific in appearance, but raises the possibility of temporal arteritis. Kobi Bui MD PE at Discharge GENERAL: Awake alert oriented talkative and cooperative SKIN: Warm and dry. HEAD: Atraumatic. Normocephalic. EYES: Pupils equal and round. No scleral icterus. No injection or drainage. No obvious nystagmus at this time extraocular muscles intact ENT: No nasal bleeding or discharge. Mucous membranes pink and moist. Tongue is midline NECK: Trachea midline. No JVD. Supple CARDIOVASCULAR: Regular rate and rhythm. S1 and S2 no S3 or S4 RESPIRATORY: No accessory muscle use. Clear to auscultation. Breath sounds equal bilaterally. GASTROINTESTINAL: Abdomen soft, non-tender, nondistended. Hepatic and splenic margins not palpable. MUSCULOSKELETAL: Extremities without clubbing, cyanosis, or edema. No obvious deformities. NEUROLOGICAL: Awake and alert. No obvious cranial nerve deficits. Motor grossly within normal limits. 4 out of 5 muscle strength in the arms and legs. Normal speech. PSYCHIATRIC: Appropriate mood and affect; insight and judgment normal. Hospital Course This is an 82-year-old female past medical history hypertension complaining of dizziness. Patient stated that dizziness started yesterday. Dizziness described as room spinning. Only occurs when she gets up. She stated that turning her head makes the dizziness worse. She denies any headache, visual changes, nausea or vomiting. Patient stated that he she has not been drinking enough fluid. Per patient's son he feels like patient is working a lot is not taking care of herself. Patient was given meclizine in the ED. She feels like meclizine has improved her dizziness, but she continues to have dizziness in which she is unable to ambulate so I was asked by the ED physician to admit to observation. In the ED patient was noted to be hypertensive. Patient stated that her blood pressures usually control. She said yesterday her systolic blood pressure was 110. All other review of system reviewed and negative. 2-9 patient is feeling much better states she is not as dizzy as yesterday and wants to go home Can be discharged to home today have discussed with the patient and her RN Tolerating meclizine and Valium for the dizziness is improved wants to be discharged to home today MRIs and MRAs have been reviewed as well as CAT scans of the head which are stable Discharge To home today Pt Condition on Discharge: Good Discharge Disposition: Disch w/ Home Health Serv Discharge Time: <= 30 minutes Discharge Instructions DIET: Follow Instructions for: Heart Healthy Diet, Diabetic Diet Speech Therapy-Diet Recommends: Regular Activities you can perform: Regular-No Restrictions Other Activity Instructions: Home health care for physical therapy and vestibular Follow up Referrals: Home Health PCP Follow-up - 3-5 Days with Mary oGrdon M.d. New Medications: Diazepam (Valium) 2 Mg Tab 2 MG PO Q12H PRN for dizziness, #60 TAB Meclizine HCl (Meclizine 25) 25 Mg Tab 25 MG PO Q8H for Dizziness, #90 TAB Continued Medications: Benazepril (Benazepril) 10 Mg Tab 10 MG PO DAILY for Blood Pressure Management, #30 TAB 0 Refills Surinder Dalal DO Sep 09, 2017 09:57
[2017-09-09 11:06] VITALS: BP 137/73; PULSE 59; RESP 18; TEMP 98; O2SAT 94
== END 2017-09-09 14:36 | disposition home or self-care (01) ==
LOC: NEPE 07:50 → NEDA 13:05 → NEPFCDU 14:02 → NEDH 09-09 14:31 → NEPFCDU 09-09 14:36
PROVIDERS: ADMIT Hospitalist; ATTEND Hospitalist
DX: R42 Dizziness and giddiness (principal); I10 Essential (primary) hypertension; E87.6 Hypokalemia; E11.9 Type 2 diabetes mellitus without complications; R53.1 Weakness; R00.2 Palpitations; R94.31 Abnormal electrocardiogram [ECG] [EKG]; K21.9 Gastro-esophageal reflux disease without esophagitis; M19.90 Unspecified osteoarthritis, unspecified site
CPT/HCPCS: 70450; 70551; 71045; 80048; 80053; 81001; 82550; 82552; 82948; 83735; 84484; 85025; 85652; 93005; 96361; 96374; 96375; 97162; 99285; G0378; G8987; G8988; J2405; J7030